=== PATIENT | male | born 1995 | race Hispanic/Latino ===

== ENCOUNTER 2022-08-17 21:36 | Emergency (ER) | payer SELFPAY ==
[~2022-08-17 21:36] MED LIST: Calcium Chloride 1 GM/10 ML Abboject SYRINGE ONE; EPINEPHrine 1 MG/10 ML Abboject SYRINGE ONE; Sodium Bicarb 50 MEQ/50 ML Abboject 8.4% SYRINGE ONE
== END 2022-08-17 21:49 | disposition expired ==
LOC: ERS 21:36 → EDBD 21:36 → ERS 21:49
DX: G93.1 Anoxic brain damage, not elsewhere classified (principal)
CPT/HCPCS: 31500; 92950; J0171